=== PATIENT | female | born 1975 | race Caucasian/White ===

== ENCOUNTER 2016-05-10 17:57 | Emergency (ER) | payer OTHER ==
[2016-05-10 18:12] VITALS: BP 149/104
--- NOTE | 2016-05-10 18:43 | ER Document Report ---
ED Medical Screen (RME) - General Chief Complaint: Allergic Reaction Stated Complaint: POSSIBLE ALLERGIC REACTION Time seen by provider: 18:43 Mode of Arrival: Ambulatory Information source: Patient Notes: 40-year-old female is complaining of bright red itchy facial rash that began last Monday after a doxycycline prescription for periOral rash. Solu- Medrol 125 IM on Monday resolved it Monday but then it started to come back. I have greeted and performed a rapid initial assessment of this patient. A comprehensive ED assessment, evaluation of the patient, analysis of test results , and completion of the medical decision making process will be conducted by additional ED providers. TRAVEL OUTSIDE OF THE [place] IN LAST 30 DAYS: No Physical Exam - Vital signs Vitals: Temp Pulse Resp BP Pulse Ox 98.5 F 81 16 149/104 H 100 05/10/16 18:11 05/10/16 18:11 05/10/16 18:11 05/10/16 18:11 05/10/16 18:11 Course - Vital Signs Vital signs: Temp Pulse Resp BP Pulse Ox 98.5 F 81 16 149/104 H 100 05/10/16 18:11 05/10/16 18:11 05/10/16 18:11 05/10/16 18:11 05/10/16 18:11
[2016-05-10] MEDS ORDERED: PREDNISONE 20 MG TABLET PO ONE (18:45)
--- NOTE | 2016-05-10 20:33 | ER Document Report ---
ED General - General Chief Complaint: Allergic Reaction Stated Complaint: POSSIBLE ALLERGIC REACTION Time seen by provider: 20:15 Mode of Arrival: Ambulatory Information source: Patient Notes: 40-year-old female who developed an itching red rash to her face neck and upper chest 6 days ago. The patient was placed on doxycycline for dermatology concerns and a taken 3 days of twice a day dosing before the rash began. At that point she stopped the rash but it continued to get worse over the ensuing 2 days at which point she received one shot of Solu-Medrol and an urgent care. She reports a rash also completely resolved and the itching did completely resolve for 2 days and then last night itching began to return and today she's had return of redness to her face. She reports at one point her eyes were swollen with a rash today but after taking Benadryl at home the swelling around her eyes lessoned. 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 She is on no other new or different medicines in says she's been on spironolactone for much longer than the past week. She denies fever, chills, nausea, vomiting, cough, shortness of breath, earache, sore throat, chest pain, abdominal pain, or back pain. She's had no prior history of symptoms like this. Physical Exam: General: Alert, appears well. HEENT: Normocephalic. Atraumatic. PERRLA. Extraocular movements intact. Oropharynx clear. No stridor or hoarseness drooling Neck: Supple. Non-tender. Respiratory: No respiratory distress. Clear and equal breath sounds bilaterally. Cardiovascular: Regular rate and rhythm. Abdominal: Normal Inspection. Soft, non-tender. No distension. Normal Bowel Sounds. Back: Non-tender. No deformity or step off. Extremities: Moves all four extremities. Upper extremities: Normal inspection. Non-tender. Normal color. Normal ROM. Normal temperature. Lower extremities: Normal inspection. Non-tender. No edema. Normal color. Normal ROM. Normal temperature. Neurological: Speech clear mentation normal Psychological: Normal affect. Normal Mood. Skin: Warm. Dry. Normal color.m patient has bright erythema involving the periorbital area nose perioral area and cheeks. It is faintly blanching with palpation. There is no ocular involvement. She has faint erythema to the anterior neck and no visible erythema to her chest. TRAVEL OUTSIDE OF THE [place] IN LAST 30 DAYS: No - Related Data Allergies/Adverse Reactions: doxycycline Allergy (Verified 05/10/16 18:48) Past Medical History - General Information source: Patient - Social History Smoking Status: Never Smoker Family History: DM - Father Patient has suicidal ideation: No Patient has homicidal ideation: No - Past Medical History Cardiac Medical History: Reports: Hx Hypertension Renal/ Medical History: Denies: Hx Peritoneal Dialysis Review of Systems - Review of Systems Constitutional: denies: Chills, Fever EENT: denies: Ear pain, Throat pain Cardiovascular: denies: Chest pain Respiratory: denies: Cough, Short of breath Gastrointestinal: denies: Abdominal pain, Nausea, Vomiting Genitourinary: denies: Burning, Dysuria Female Genitourinary: Last menstrual period - April 16. denies: Musculoskeletal: denies: Back pain Skin: See HPI Hematologic/Lymphatic: See HPI Neurological/Psychological: denies: Weakness, Numbness Physical Exam - Vital signs Vitals: Temp Pulse Resp BP Pulse Ox 98.5 F 81 16 149/104 H 100 05/10/16 18:11 05/10/16 18:11 05/10/16 18:11 05/10/16 18:11 05/10/16 18:11 Course - Re-evaluation Re-evalutation: 05/10/16 20:38 Patient has been off of doxycycline for Roman week and has return of rash but it is apparently respond to steroids earlier. The patient also takes spironolactone and what we are seeing may be a synergistic effect. I instructed her to stop the spironolactone. Also struck her using Benadryl 4 times a day, Pepcid twice a day and we'll prescribe a Medrol Dosepak. She has no findings suggestive of any airway involvement, Cortes-Miguel A syndrome, TEN , or other systemic involvement - Vital Signs Vital signs: Temp Pulse Resp BP Pulse Ox 98.5 F 81 16 149/104 H 100 05/10/16 18:11 05/10/16 18:11 05/10/16 18:11 05/10/16 18:11 05/10/16 18:11 Discharge - Discharge Clinical Impression: Rash Condition: Stable Disposition: HOME, SELF-CARE Additional Instructions: Take Benadryl 25 mg every 6 hours Take Pepcid 20 mg every 12 hours Take Medrol Dosepak as prescribed Stop spironolactone Stop doxycycline Return to emergency Department for worse rash, difficulty breathing, vomiting, or other problems Prescriptions: Methylprednisolone [Medrol Dosepack (4 mg/Tab) 21 Tab/Dosepak] 4 mg PO ASDIR PRN #[id number] PRN Reason: Referrals: SARINA CHEN NP [Primary Care Provider] - Follow up in 1 week
== END 2016-05-10 20:50 | disposition home or self-care (01) ==
LOC: ER 17:57
DX: R21 Rash and other nonspecific skin eruption (principal); L29.9 Pruritus, unspecified; I10 Essential (primary) hypertension; Z79.899 Other long term (current) drug therapy; Z88.1 Allergy status to other antibiotic agents
CPT/HCPCS: 99283; J7512

== ENCOUNTER 2016-06-05 14:37 | Emergency (ER) | payer OTHER ==
[2016-06-05 14:51] VITALS: BP 149/112
--- NOTE | 2016-06-05 15:31 | ER Document Report ---
HPI - HPI Patient complains to provider of: skin eruption Pain Level: 2 Context: 40-year-old female who developed an itching red rash to her face neck and upper chest 5 weeks ago after being started on doxycycline and spirinolactone for an exisiting skin eruption on her neck and chest. She states that she's been to multiple dermatologists for this complaint and is following up with [facility] dermatology at the end of July. She states that she is only here for recommendations on how to decrease her eyelid swelling which is worse in the mornings but resolved with Benadryl throughout the day. She denies fever, chills , nausea, vomiting, cough, shortness of breath, earache, sore throat, chest pain , abdominal pain, or back pain. She's had no prior history of symptoms like this. - DERM Skin Color: Normal Past Medical History - Social History Smoking Status: Unknown if Ever Smoked Drug Abuse: None Family History: DM - Father Patient has suicidal ideation: No Patient has homicidal ideation: No - Past Medical History Cardiac Medical History: Reports: Hx Hypertension Renal/ Medical History: Denies: Hx Peritoneal Dialysis Vertical Provider Document - CONSTITUTIONAL Agree With Documented VS: Yes Exam Limitations: No Limitations General Appearance: WD/WN, No Apparent Distress - INFECTION CONTROL TRAVEL OUTSIDE OF THE [place] IN LAST 30 DAYS: No - HEENT HEENT: Atraumatic, Normal ENT Exam, Normocephalic, PERRLA - RESPIRATORY Respiratory: Breath Sounds Normal, No Respiratory Distress, Chest Non-Tender. negative: Rales, Rhonchi, Wheezing O2 Sat by Pulse Oximetry: 99 - CARDIOVASCULAR Cardiovascular: Regular Rate, Regular Rhythm, No Murmur - DERM Notes: Warm. Dry. Red. patient has bright erythema involving the periorbital area nose perioral area and cheeks. It is faintly blanching with palpation. There is no ocular involvement. She has faint erythema to the anterior neck and no visible erythema to her chest. Course - Re-evaluation Re-evalutation: 06/05/16 21:39 Patient has been off of doxycycline for 4 weeks and has return of rash but it is apparently respond to steroids earlier. She's been on steroids as well as topical steroids per Derm. She has no findings suggestive of any airway involvement, Cortes-Miguel A syndrome, TEN, or other systemic involvement. This time I have instructed patient to continue her current medication regimen and to follow-up with dermatology. - Vital Signs Vital signs: Temp Pulse Resp BP Pulse Ox 98.4 F 111 H 16 149/112 H 99 06/05/16 14:49 06/05/16 14:49 06/05/16 14:49 06/05/16 14:49 06/05/16 14:49 Discharge - Discharge Clinical Impression: Rash Condition: Good Disposition: HOME, SELF-CARE Additional Instructions: Take Benadryl 25 mg every 6 hours Take Pepcid 20 mg every 12 hours Continue your prednisone prescription as directed Return to emergency Department for difficulty breathing, vomiting, or other problems Referrals: SARINA CHEN NP [Primary Care Provider] - Follow up as needed
== END 2016-06-05 15:35 | disposition home or self-care (01) ==
LOC: ER 14:37
DX: R21 Rash and other nonspecific skin eruption (principal)
CPT/HCPCS: 99283

== ENCOUNTER → 2016-06-09 | Outpatient (CLI) | payer OTHER | LOC: WI 10:00 | PROVIDERS: ATTEND Nurse Practitioner | DX: Z12.31 Encounter for screening mammogram for malignant neoplasm of breast (principal) | CPT/HCPCS: 77067; G0202 ==